=== PATIENT | female | born 1975 | race Caucasian/White ===

== ENCOUNTER 2022-07-28 12:43 | Outpatient (CLI) | payer OTHER, SELFPAY ==
--- NOTE | 2022-07-28 13:00 | CRLHL7_ITS ---
For Patients: As a result of the Century Cures Act, medical imaging exams and procedure reports are released immediately into your electronic medical record. You may view this report before your referring provider. If you have questions, please contact your health care provider. BILATERAL SCREENING MAMMOGRAM WITH COMPUTER-AIDED DETECTION TECHNIQUE: CC, MLO and Implant displaced views were obtained. These mammographic images have been obtained using full-field digital technique. These mammographic images were interpreted with the benefit of computer-aided detection. COMPARISON FILM: 07/15/21, 07/13/20, 07/01/19. FINDINGS: The breasts are extremely dense, which lowers the sensitivity of mammography IMPRESSION: There is no radiographic evidence for malignancy. ASSESSMENT: BI-RADS Category 2: Benign RECOMMENDATION: Routine screening mammogram in 1 year. A lay language report of this examination will be provided to the patient. Chapo Cerda M.D. Diagnostic Radiologist [email or web address] INDU/[email or web address] dillard/Dictated by: Chapo Cerda MD @ 08/02/2022 12:27:00 PM (Electronically Signed)
== END 2022-07-28 12:44 | disposition home or self-care (01) ==
LOC: MAMMO 12:43
PROVIDERS: PCP Family Medicine; Visit Provider Physician Assistant
DX: Z12.31 Encounter for screening mammogram for malignant neoplasm of breast (principal); R92.2 Inconclusive mammogram
CPT/HCPCS: 77067

== ENCOUNTER 2022-09-19 17:42 | Outpatient (CLI) | payer OTHER, SELFPAY | END 2022-09-19 17:43 | disposition home or self-care (01) | LOC: NFLDREF 17:43 | PROVIDERS: PCP Family Medicine; Visit Provider Physician Assistant | DX: Z01.419 Encounter for gynecological examination (general) (routine) without abnormal findings (principal); K59.00 Constipation, unspecified; R19.09 Other intra-abdominal and pelvic swelling, mass and lump | CPT/HCPCS: 84443 ==

== ENCOUNTER 2022-09-27 16:48 | Outpatient (CLI) | payer OTHER, SELFPAY ==
--- NOTE | 2022-09-27 17:00 | CRLHL7_ITS ---
For Patients: As a result of the Century Cures Act, medical imaging exams and procedure reports are released immediately into your electronic medical record. You may view this report before your referring provider. If you have questions, please contact your health care provider. INDICATION: 47 year-old female. Palpable right inguinal lumps. TECHNIQUE: Directed soft tissue ultrasound of the right inguinal region. Directed soft tissue ultrasound of the left inguinal region for comparison. FINDINGS: Multiple bilateral inguinal lymph nodes are identified. They maintain a normal reniform shape and an echogenic hilus. Within the right groin there are 4 lymph nodes visualized the largest measuring up to 1.6 cm, 2 measuring up to 1.4 cm and a additional lymph node measuring up to 1.5 cm. For comparison the left inguinal region is imaged and there is a 1.7 cm left inguinal lymph node as well as a 2nd 1.5 cm lymph node. Three additional lymph nodes are measured at less than 1 cm. IMPRESSION: Bilateral inguinal lymph nodes maintaining a normal reniform shape. No lymphadenopathy. Dictated by Jarett Barrios MD @ 09/27/2022 10:32:09 PM (Electronically Signed)
== END 2022-09-27 16:49 | disposition home or self-care (01) ==
LOC: US 16:48
PROVIDERS: PCP Family Medicine; Visit Provider Physician Assistant
DX: R19.09 Other intra-abdominal and pelvic swelling, mass and lump (principal)
CPT/HCPCS: 76882

== ENCOUNTER 2022-09-29 19:43 | Emergency (ER) | payer OTHER, SELFPAY ==
[2022-09-29 20:31] VITALS: BP 147/76; PULSE 67; RESP 18; TEMP 36.5; O2SAT 99
--- NOTE | 2022-09-29 20:39 | CRLHL7_ITS ---
For Patients: As a result of the Century Cures Act, medical imaging exams and procedure reports are released immediately into your electronic medical record. You may view this report before your referring provider. If you have questions, please contact your health care provider. INDICATION: Right flank pain TECHNIQUE: Axial images were obtained from the diaphragm to the pubic symphysis. Reformats were obtained in the coronal and sagittal plane. IV Contrast: None Oral Contrast: None COMPARISON: None. FINDINGS: Lower chest: No acute consolidation. Bilateral breast implants. Liver: Normal in contour with 4 millimeter cyst within the left lobe. Gallbladder and bile ducts: High density layering within the gallbladder, high-density sludge versus small stones. No pericholecystic inflammation. Spleen: Unremarkable. Normal in size without mass. Pancreas: Unremarkable. No mass or inflammation. Adrenal glands: Unremarkable. No nodules. Kidneys: Multiple phleboliths within the pelvis without definite ureteral stone or hydronephrosis. Vasculature: Unremarkable. GI tract: No dilated loops of large or small intestine. Pelvis: Anteverted uterus with intrauterine device. Likely right ovarian cyst measuring 1.5 centimeters. Bones: Unremarkable for age. IMPRESSION: 1. Multiple phleboliths within the pelvis without definite ureteral stone. No hydronephrosis. 2. High density within the gallbladder, high-density bile and/or multiple gallstones. No pericholecystic inflammation is present although if there is pain localized to the right upper quadrant, ultrasound would have improved characterization. 3. No dilated loops of large or small intestine. Please note that all CT scans at this facility use dose modulation, iterative reconstruction, and/or weight-based dosing when appropriate to reduce radiation dose to as low as reasonably achievable. Dictated by Steve Rock MD @ 09/29/2022 9:01:45 PM (Electronically Signed)
--- NOTE | 2022-09-29 20:40 | ED.GENADULT ---
HPI - General Adult General Chief complaint: Flank Pain Stated complaint: Possible kidney stones Time Seen by Provider: 09/29/22 20:29 History of Present Illness HPI narrative: This 47-year-old female comes in reporting right flank pain that began yesterday. She states that the pain comes and goes somewhat and sometimes there is associated nausea. When the pain is present she is maneuvering trying to get into a comfortable position. She does not have any personal or family history of kidney stones. She does not describe any hematuria but states that she is urinating a bit more frequently. Prior to this she was in good health. Related Data Home Medications Medication Instructions Recorded Confirmed levonorgestrel 21 mcg/24 hours (8 1 device intrauterine ONCE 03/15/22 09/29/22 yrs) 52 mg intrauterine device (Mirena) multivitamin (Multiple Vitamins 1 tab PO QDAY 03/15/22 09/29/22 tablet) calcium carbonate 500 mg calcium 500 mg PO QDAY 09/19/22 09/29/22 (1,250 mg) chewable tablet (Calcium 500) Previous Rx's Medication Instructions Recorded hydrocodone 5 mg-acetaminophen 325 1 tab PO Q4-6H PRN pain #20 tabs 09/29/22 mg tablet Allergies Allergy/AdvReac Type Severity Reaction Status Date / Time No Known Allergies Allergy Unknown Verified 09/29/22 20:33 Review of Systems Status of ROS: Reports: 10 or more systems reviewed and unremarkable except as noted in History and below Narrative: Constitutional: No fevers, no weight gain or loss. Eyes: No discharge. No vision changes. HENT: No congestion, no sore throat, no ear pain. Cardiovascular: No chest pain, no palpitations. Respiratory: No shortness of breath, no wheezes, no cough. Gastrointestinal: No vomiting, no diarrhea. Right flank pain that sometimes radiates into the abdomen. Genitourinary: No dysuria, no hematuria. Musculoskeletal: Normal range of motion. Skin: No rashes, no pruritis. Neurological: No dizziness, weakness, sensory change, speech change. Endo/Heme/Allergies: No bruising or bleeding. No polydipsia. Pysch: no suicidality, no anxiety, no insomnia. All other systems reviewed and are negative. [facility] Surgical History (Updated 09/22/22 @ 08:30 by Hermila Fitzloff, PA-C) History of bilateral breast implants History of spinal surgery Family History (Updated 09/18/22 @ 14:25 by Hermila De La O PA-C) Son Kidney disease Social History (Updated 09/22/22 @ 08:16 by Hermila De La O PA-C) Narrative: Exercises regularly- 4/week, farm chores , office work, 3 kids Social drinker- 5/week Tobacco abuse- infrequent, hx 15 years 1 pack/week. Currently using E cigarette congenitally. Smoking Status: Current some day smoker Little interest or pleasure in doing things: not at all Feeling down, depressed, or hopeless: not at all Exam Narrative: Exam Narrative: Constitutional: Well-developed, well-nourished, no acute distress. HEENT: Normocephalic, atraumatic. Neck: Normal range of motion. Nontender. Supple. Heart: Regular. No murmurs. Normal rate. Intact distal pulses. Lungs: Clear to auscultation. No chest discomfort. No wheezes, rhonchi, or rales. Abdomen: Normal bowel sounds. Nontender. No rebound tenderness. Pain is located in the right flank region. Genitalia: Deferred. Back: No midline tenderness. Normal range of motion. Extremities: Normal range of motion. No injury. Skin: Intact. No rash. Warm. No erythema or pallor. Neurologic: No altered sensation. No weakness. Alert and oriented. Psychiatric: No suicidality. No anxiety or depression. No insomnia. Nursing notes and vitals signs are reviewed. Const: Vital Signs, click to edit/add: Vital Signs - 24 hr 09/29/22 20:31 Temperature 97.7 F Pulse Rate [Right Pulse Oximeter] 67 Respiratory Rate 18 Blood Pressure [Ri ght Upper Arm] 147/76 H Pulse Oximetry 99 Oxygen Delivery Me thod Room Air Course Vital Signs Vital signs: Initial Vital Signs Temperature 97.7 F 09/29/22 20:31 Temperature Source Temporal Artery Scan 09/29/22 20:31 Pulse Rate 67 09/29/22 20:31 Respiratory Rate 18 09/29/22 20:31 Blood Pressure 147/76 H 09/29/22 20:31 Blood Pressure Mean 99 09/29/22 20:31 Blood Pressure Position Sitting 09/29/22 20:31 Pulse Oximetry 99 09/29/22 20:31 Oxygen Delivery Method 09/29/22 20:31 Vital Signs Temperature 97.7 F 09/29/22 20:31 Pulse Rate 67 09/29/22 20:31 Respiratory Rate 18 09/29/22 20:31 Blood Pressure 147/76 H 09/29/22 20:31 Pulse Oximetry 99 09/29/22 20:31 Oxygen Delivery Method 09/29/22 20:31 Temperature 97.7 F 09/29/22 20:31 Pulse Rate 67 09/29/22 20:31 Respiratory Rate 18 09/29/22 20:31 Blood Pressure 147/76 H 09/29/22 20:31 Pulse Oximetry 99 09/29/22 20:31 Oxygen Delivery Method 09/29/22 20:31 Medical Decision Making MDM Narrative Medical decision making narrative: This patient comes in reporting right flank pain that sometimes radiates into her right abdomen. She was suspicious of a kidney stone but did not have any prior history of this nor was she aware of any family history of kidney stone. She declined any treatment for pain or other symptoms currently. Urinalysis was acquired and shows no sign of hematuria or infection. CT imaging of the abdomen and pelvis without contrast shows multiple phleboliths but no sign of kidney stone. There is suspicion that her gallbladder has sludge are multiple stones present. I did use bedside ultrasound to attempt to visualize her gallbladder. A does appear that it is full of stones or sludge. The patient did eat prior to arrival here and states that her pain worsened soon after eating. I did order an ultrasound from the radiology department to further evaluate this. Lab results also or acquired to evaluate for obstruction or infection. Results for these tests are pending at the end of my shift and the overnight physician will look after results and proceed accordingly. Lab Data Labs: Lab Results 09/29/22 Range/Units 20:29 Urine Color Yellow (Yellow) Urine Appearance Clear (Clear) Urine pH 6.5 (5.0-8.5) Ur Specific [place] <= 1.005 (1.000-1.030) Urine Protein Negative (Negative) Urine Glucose (UA) Negative (Negative) Urine Ketones Negative (Negative) Urine Blood Negative (Negative) Urine Nitrite Negative (Negative) Urine Bilirubin Negative (Negative) Urine Urobilinogen 0.2 (0.2-1.0) Ur Leukocyte Esterase Negative (Negative) Imaging Data CT scan - abdomen: Radiologist's impression: 1. Multiple phleboliths within the pelvis without definite ureteral stone. No hydronephrosis. 2. High density within the gallbladder, high-density bile and/or multiple gallstones. No pericholecystic inflammation is present although if there is pain localized to the right upper quadrant, ultrasound would have improved characterization. 3. No dilated loops of large or small intestine. Discharge Plan Discharge Clinical Impression: Cholelithiasis Condition: Unchanged Prescriptions: New hydrocodone-acetaminophen 5-325 mg tablet 1 tab PO Q4-6H PRN (Reason: pain) Qty: 20 0RF No Action calcium carbonate [Calcium 500] 500 mg calcium (1,250 mg) tablet,chewable 500 mg PO QDAY multivitamin [Multiple Vitamins] Tablet 1 tab PO QDAY Mirena 20 mcg/24 hours (7 yrs) 52 mg intrauterine device 1 device intrauterine ONCE Rx Instructions: as a single dose Follow Up/Referrals: Gabbi Santiago MD [Primary Care Provider] -
[2022-09-29 20:42] LABS: Appearance Urine Clear (Clear); Bilirubin Urine Negative (Negative); Blood Urine Negative (Negative); Color Urine Yellow (Yellow); Glucose Urine Negative (Negative); Ketones Urine Negative (Negative); Leukocyte Esterase Urine Negative (Negative); Nitrite Urine Negative (Negative); Protein Urine Negative (Negative); Specific Gravity Urine <= 1.005 (1.000-1.030); Urobilinogen Urine 0.2 (0.2-1.0); pH Urine 6.5 (5.0-8.5)
--- NOTE | 2022-09-29 21:38 | CRLHL7_ITS ---
For Patients: As a result of the Century Cures Act, medical imaging exams and procedure reports are released immediately into your electronic medical record. You may view this report before your referring provider. If you have questions, please contact your health care provider. INDICATION: Abdominal pain right upper quadrant TECHNIQUE: Ultrasound abdomen limited. Sonographic images of the right upper quadrant were obtained using smith-scale and color Doppler images. COMPARISON: CT 09/29/2022 FINDINGS: Liver: There is a 7 mm simple cyst in the left lateral segment of liver. Gallbladder: Numerous layering echogenic foci are present within the contracted gallbladder which likely represent tiny gallstones. The gallbladder wall is normal in appearance. No pericholecystic fluid is present. Common bile duct: 4 mm. No intrahepatic biliary ductal dilatation seen. Pancreas: The visualized portions of the pancreatic head and body are normal in appearance. Right Kidney: 10.2 cm. No hydronephrosis or ureterectasis is seen. Vascular: The visualized abdominal aorta and IVC are unremarkable. The visualized portal vein is patent with normal anterograde flow. IMPRESSION: 1. Numerous layering echogenic foci are present within the contracted gallbladder which likely represent tiny gallstones. Dictated by Lucho Cleveland MD @ 09/29/2022 10:57:46 PM Dictated by: Lucho Cleveland MD @ 09/29/2022 22:57:49 (Electronically Signed)
[2022-09-29 22:02] LABS: Basophils Absolute Auto 0.05 K/uL (0.00-0.30); Basophils Percent Auto 0.7 % (0.0-3.0); Eosinophils Absolute Auto 0.18 K/uL (0.00-0.50); Eosinophils Percent Auto 2.6 % (0.0-7.0); Hematocrit 37.9 % (33.0-51.0); Hemoglobin* 12.6 gm/dL (12.0-16.0); Lymphocytes Absolute Auto 2.03 K/uL (0.90-2.90); Lymphocytes Percent Auto 29.3 % (20-44); Mean Corpuscular HGB Conc 33 gm/dL (32-36); Mean Corpuscular Hemoglobin 32 pg (26-34); Mean Corpuscular Volume 97 fL (80-100); Monocytes Percent Auto 9.4 % (0.0-11.0); Neutrophils Absolute Auto 4.02 K/uL (1.7-7.0); Platelet Count* 233 K/uL (140-440); RDW Coefficient of Variation % 12.1 % (11.5-15.5); Red Blood Count 3.91 m/uL (4.00-5.20); White Blood Count* 6.93 K/uL (4.50-11.00)
[2022-09-29 22:07] VITALS: BP 135/74; PULSE 67; RESP 18; TEMP 36.5; O2SAT 99
[2022-09-29 22:18] LABS: Chloride* 105 mmol/L (96-114)
[2022-09-29 22:19] LABS: Albumin* 4.2 g/dL (3.3-5.0); Potassium* 3.7 mmol/L (3.6-5.1); Sodium* 137 mmol/L (135-149)
[2022-09-29 22:22] LABS: Alanine Aminotransferase* 16 U/L (4-35); Alkaline Phosphatase* 40 U/L (40-150); Aspartate Amino Transferase* 20 U/L (12-35); Bilirubin Direct* 0.2 mg/dL (0.0-0.5); Bilirubin Total* 0.3 mg/dL (0.1-1.5); Blood Urea Nitrogen* 10 mg/dL (5-24); Calcium* 9.1 mg/dL (8.4-10.6); Carbon Dioxide* 30 mmol/L (20-32); Creatinine* 0.7 mg/dL (0.5-1.5); Est. Creatinine Clearance* 83.54; Estimated Glomerular Filt Rate 106 ml/min; Glucose* 90 mg/dL (60-115); Lipase* 79 U/L (23-300); Total Protein* 7.2 g/dL (6.0-8.3)
[2022-09-29 22:37] LABS: Slide Review Reflex No
[2022-09-29 23:33] VITALS: BP 135/74; PULSE 67; RESP 18; TEMP 36.5
[2022-09-29 23:35] VITALS: BP 128/74; PULSE 71; RESP 18; TEMP 36.5; O2SAT 99
== END 2022-09-29 23:34 | disposition home or self-care (01) ==
PROVIDERS: Emergency Provider Emergency Medicine Emergency Medical Services; PCP Family Medicine
DX: K80.20 Calculus of gallbladder without cholecystitis without obstruction (principal)
CPT/HCPCS: 36415; 74176; 76705; 80048; 80076; 81003; 83690; 85025; 99284; 99285

== ENCOUNTER 2022-10-10 08:51 | Day surgery (SDC) | payer OTHER, SELFPAY ==
[2022-10-10] VITALS (16 sets, daily range): BP systolic 118–137; BP diastolic 60–88; PULSE 42–65; RESP 12–26; TEMP 36.5–36.9; O2SAT 92–100; BMI 19.3
[2022-10-10 09:15] LABS: Ur HCG Qualitative* Negative (Negative)
[2022-10-10] MEDS: SODIUM CHLORIDE 0.9 % (FLUSH) 10 ML SYRINGE IVF (09:25)
[2022-10-10] MEDS: LACTATED RINGERS 1000 ML 1,000 ML 100 ML IV ×2 (09:26→12:25)
--- NOTE | 2022-10-10 09:39 | SUR.PREOP ---
Patient provided home covid negative results to RN.
[2022-10-10] MEDS: CEFAZOLIN 1 GM inj IVP (11:15)
--- NOTE | 2022-10-10 11:27 | W.ANESCHARGE ---
Anesthesia Charges Start Date/Time Anesthesia Start Date: 10/10/22 Anesthesia Start Time: 11:04 Stop Date/Time Anesthesia Stop Date: 10/10/22 Anesthesia Stop Time: 12:07
--- NOTE | 2022-10-10 11:47 | W.ANESCHARGE ---
Anesthesia Charges Start Date/Time Anesthesia Start Date: 10/10/22 Anesthesia Start Time: 11:04 Stop Date/Time Anesthesia Stop Date: 10/10/22 Anesthesia Stop Time: 12:07
[2022-10-10] MEDS: BUPIVACAINE 0.5% 30 ML 20 ML INJECTION (11:50)
--- NOTE | 2022-10-10 12:01 | PM.GSPRC ---
Operative Note Date of procedure: 10/10/22 Pre-op diagnosis: Biliary colic Post-op diagnosis: Same Type of Procedure: Laparoscopic cholecystectomy Indications: Patient is a 47-year-old female, who was seen in clinic for biliary colic. I had a detailed conversation with the patient regarding the diagnosis of biliary colic. We discussed the treatment options including observation with diet modification and laparoscopic cholecystectomy. We discussed the risks of surgery (including but not limited to) the risks of bleeding, infection, injury to other structures in the abdomen including bile duct injury, bile leak and conversion to an open operation. We discussed the possibility that the patient's pain not improve with surgery. We discussed the possibility of permanent post-operative diarrhea that may require medical management. Additionally, the conceivably of complications requiring additional surgery or further hospitalization were also discussed including the risks of WA, respiratory failure, stroke and blood clots. The patient voiced an understanding of our conversation, had the opportunity to ask questions, agreed to accept the risks of surgery and asked that we proceed with surgery. Procedure Description: After discussing the risks and benefits of the procedure, the patient signed informed consent.? The operative site was marked and the patient was brought to the operating room and placed on the operating table in supine position.? Care was taken to pad the patient's pressure points.?? The patient was then intubated by anesthesia.?? The operative site was then prepped and draped in the usual sterile fashion.? A time-out was then performed. Entrance to the abdomen was gained via a 5 mm Visiport in the left upper quadrant. The abdomen was insufflated and briefly surveyed for signs of injury. There was none. 11 mm umbilical port was placed as well as 2 working ports along the right costal margin. Patient was then placed in reverse Trendelenburg position with the right side up. The gallbladder fundus was grasped and retracted cephalad. The infundibulum was grasped. A combination of hook cautery and blunt dissection was used to carefully dissect out the cystic duct and artery until they could clearly be seen entering the gallbladder without any intervening structures. The gallbladder was dissected off the cystic plate to achieve the critical view. Once this was achieved the cystic duct and artery were each clipped with 2 clips proximally and 1 clip distally and transected with the scissors. The gallbladder was then taken off of the liver bed. And removed from the abdomen using an Endo-Catch bag. The gallbladder bed was surveyed for hemostasis. The umbilical port fascia was closed with 0 Vicryl. All other ports were removed under direct visualization. The skin was closed with absorbable subcuticular suture. Instrument sponge and needle counts were correct at the end of the case. The patient was then woken and transferred to the PACU in stable condition. ? Findings: Cholelithiasis Anesthesia: GETA Surgeon: Rebecca Painter MD Estimated blood loss (mL): 5 Specimen: Gallbladder Condition: stable Disposition: same day
[2022-10-10] MEDS: fentaNYL 100 MCG/2 ML inj 50 MCG IVP (12:49)
[2022-10-10] MEDS: KETOROLAC 15 MG/ML inj IVP (12:54)
[2022-10-10] MEDS: OXYCODONE 5 MG TABLET PO (13:15)
== END 2022-10-10 14:18 | disposition home or self-care (01) ==
PROVIDERS: PCP Family Medicine; Visit Provider Surgery
PROC: 0FT44ZZ Resection of Gallbladder, Percutaneous Endoscopic Approach (ICD-10-PCS; CPT 47562; principal; 2022-10-10 10:15)
DX: K80.10 Calculus of gallbladder with chronic cholecystitis without obstruction (principal)
CPT/HCPCS: 47562; 00790; 81025; 88304; A9270; J0690; J1100; J1885; J2250; J2405; J2704; J3010; J3490; J7120

== ENCOUNTER 2023-08-03 14:35 | Outpatient (CLI) | payer OTHER, SELFPAY ==
--- NOTE | 2023-08-03 14:40 | CRLHL7_ITS ---
For Patients: As a result of the Century Cures Act, medical imaging exams and procedure reports are released immediately into your electronic medical record. You may view this report before your referring provider. If you have questions, please contact your health care provider. BILATERAL SCREENING MAMMOGRAM WITH COMPUTER-AIDED DETECTION TECHNIQUE: CC, MLO and Implant displaced views were obtained. These mammographic images have been obtained using full-field digital technique. These mammographic images were interpreted with the benefit of computer-aided detection. COMPARISON FILM: 03/13/17, 11/02/15. FINDINGS: The breasts are extremely dense, which lowers the sensitivity of mammography IMPRESSION: There is no radiographic evidence for malignancy. ASSESSMENT: BI-RADS Category 2: Benign RECOMMENDATION: Routine screening mammogram in 1 year. A lay language report of this examination will be provided to the patient. Jarett Barrios M.D. Diagnostic/Nuclear Medicine Radiologist [email or web address] BETHANY/Dictated by: Jarett Barrios MD @ 08/07/2023 8:27:00 AM (Electronically Signed)
== END 2023-08-03 14:36 | disposition home or self-care (01) ==
LOC: MAMMO 14:36
PROVIDERS: PCP Family Medicine; Visit Provider Family Medicine
DX: Z12.31 Encounter for screening mammogram for malignant neoplasm of breast (principal); R92.2 Inconclusive mammogram
CPT/HCPCS: 77063; 77067

== ENCOUNTER 2023-10-26 07:42 | Outpatient (CLI) | payer OTHER, SELFPAY ==
--- NOTE | 2023-10-26 09:04 | W.ANESCHARGE ---
Anesthesia Charges Start Date/Time Anesthesia Start Date: 10/26/23 Anesthesia Start Time: 08:22 Stop Date/Time Anesthesia Stop Date: 10/26/23 Anesthesia Stop Time: 08:48
--- OUTSIDE RECORDS SUMMARY | 2023-11-02 11:59 | XMS_ITS | Clinical Summary ---
Author Name Unknown Organization [facility] Address [place], [place] [address] Care Team Providers Care Supervisor [employer] Name Role Phone Unknown, Doctor Primary Care Provider Unavailabl e Allergies No known active allergies Medications Medication Sig Dispensed Refills Start Date End Date Status VITAMIN E 1,000 UNIT CAP take 2 pill a day 0 10/20/2008 Active benzonatate (TESSALON) 100 mg capsuleIndications:V iral URI with cough Take 1 capsule by mouth 3 times daily if needed for Cough. 21 capsule 11/02/2017 Active Immunizations Name Administration Dates Next Due AMB Influenza, IIV3 (Age >=3 years)(Flu Clinic Only) 06/17/2008 Influenza, IIV3 (Age >=3 years) 06/17/2008,06/29,09/12/2006 Influenza, IIV4 09/10/2017 Td (Age >=7 Years) 04/23/1986 Tdap 10/20/2015 Social History Tobacco Use Types Packs/Day Years Used Date Smoking Tobacco: Never Smokeless Tobacco: Never Tobacco Cessation:Counseling Given: Yes Alcohol Use Standard Drinks/Week Comments Not Asked 0 (1 standard drink = 0.6 oz pur e alcohol) PHQ-2 Answer Date Recorded PHQ-2 Score 0 09/29/2018 Sex and Gender Information Value Date Recorded Sex Assigned at Not on file Gender Identity Not on file Sexual Orientation Not on file Obstetrics History Last Filed Vital Signs Vital Sign Reading Time Taken Comments Blood Pressure 130/64 11/02/2017 8:06 AM CDT Pulse 64 11/02/2017 8:06 AM CDT Temperature 37 ??C (98.6 ??F) 11/02/2017 8:06 AM CDT Respiratory Rate - - Oxygen Saturation 100% 11/02/2017 8:06 AM CDT Inhaled Oxygen Concentration - - Weight 54 kg (119 lb) 11/02/2017 8:06 AM CDT Height 166 cm (5' 5.35) 11/02/2017 8:06 AM CDT Body Mass Index 19.59 11/02/2017 8:06 AM CDT Plan of Treatment Health Maintenance Due Date Last Done Comments HIV for age 15-65 1988 Hepatitis C screening for age 18-79 1991 Colonoscopy through age 75 2018 Lipids for age 45-75 2018 Mammogram for age 45-75 2018 BMI (ht and wt on same day) for age 18+ 11/02/2018 11/02/2017 Depression screening for age 12+ 11/02/2018 11/02/2017 COVID-19 vaccine series (2022- season) 2023 Zoster (shingles) series for age 50+ (1 of 2) 2023 Pap test for age 21-65 01/14/2024 , 01/13/2021, 10/20/2015, Additional history exists Influenza for age 50-64 03/30/2024 09/10/19 18, 06/17/2008, 06/17/2008, Additional history exists Tetanus booster 10/19/2025 10/20/2015, 04/23/1986 Tdap Completed 10/20/2015 Pneumococcal series for age 6-64 Aged Out No longer eligible based on patient's age to complete this topic Procedures Procedure Name Priority Date/Time Associated Diagnosis Comments MOLD FILLER THIN PREP PAP SCREEN IMAGED Routine 01/13/2021 12:00 PM CDT from Last 3 Months or Most Recently Relevant to Health Maintenance Results * MOLD FILLER THIN PREP PAP SCREEN IMAGED (01/13/2021 12:00 PM CDT) Case Report Gynecologic Cytology Report ? Case: [id number] ? Authorizing Provider: ??Fitzloff, Hermila L, PA-C ?Collected: ? 01/13/2021 1200 ? Ordering Location: ? [facility] ?Received: ?01/17/2021 0934 ? First Screen: ?Marlene Castro ? Specimen: ?MOLD FILLER ThinPrep Vial Screening, Cervical/Vaginal ? 01/26/2021 1:41 PM CDT [facility] INTERPRETATION/ RESULT NEGATIVE FOR INTRAEPITHELIAL LESION OR MALIGNANCY (NIL) (none) 01/26/2021 1:41 PM CDT [facility] NISM(S) Shift in santa suggestive of bacterial vaginosis 01/26/2021 1:41 PM CDT [facility] SPECIMEN ADEQUACY Satisfactory for evaluation Endocervical component present 01/26/2021 1:41 PM CDT [facility] HPV REQUEST HPV and PAP 01/26/2021 1:41 PM CDT [facility] Date of LMP 01/03/2021 01/26/2021 1:41 PM CDT [facility] Additional Information 01/26/2021 1:41 PM T [facility] Comment: Interpreted at [facility] - [address], [place] [address] Automated Review Successful 01/26/2021 1:41 PM CDT [facility] [employer] [facility] Comment:Specimen processed s uccessfully by automated mrp controller device, [employer] MedicalPrep Imaging System, [employer] ANCILLARY TESTING MOLD FILLER HPV Ordered, Please see separate report 01/26/2021 1:41 PM CDT [facility] Note The pap test is a screening technique, not a diagnostic procedure. It is used primarily to screen for squamous cancers and precursor lesions. Published studies have shown that it is subject to both false negative and false positive results. The pap test should not be used as the sole means to diagnose or exclude pre-malignant and malignant lesions. 01/26/2021 1:41 PM CDT [facility] [employer] [facility] Other (Cervical/Vagina l) 01/13/2021 12:00 PM CDT 01/17/2021 9:34 AM CDT October [facility] PATHOLOGY/CYTOLOGY [facility] [address] [place] [address], [place] from Last 3 Months or Most Recently Relevant to Health Maintenance Care Teams Supervisor [employer] Relationship Specialty Start Date End Date Unknown, Doctor . PCP - General 09/12/06
== END 2023-10-26 07:43 | disposition home or self-care (01) ==
LOC: OP CLINIC 07:42
PROVIDERS: PCP Family Medicine; Visit Provider Internal Medicine
DX: Z12.11 Encounter for screening for malignant neoplasm of colon (principal); K64.8 Other hemorrhoids
CPT/HCPCS: 00812; 45378; J2704

== ENCOUNTER 2024-08-05 16:35 | Outpatient (CLI) | payer BC, SELFPAY | END 2024-08-05 16:36 | disposition home or self-care (01) | LOC: NFLDREF 08-06 01:53 | PROVIDERS: PCP Family Medicine; Referring Provider Family Medicine; Visit Provider Internal Medicine | DX: M54.9 Dorsalgia, unspecified (principal); R82.90 Unspecified abnormal findings in urine | CPT/HCPCS: 87086 ==

== ENCOUNTER 2024-08-08 15:29 | Outpatient (CLI) | payer BC, SELFPAY ==
--- NOTE | 2024-08-08 16:00 | CRLHL7_ITS ---
For Patients: As a result of the Century Cures Act, medical imaging exams and procedure reports are released immediately into your electronic medical record. You may view this report before your referring provider. If you have questions, please contact your health care provider. INDICATION: Flank pain. Hematuria. TECHNIQUE: Noncontrast CT images of the abdomen and pelvis. COMPARISON: CT abdomen pelvis 09/29/2022. FINDINGS: No concerning opacities in the visualized lungs. No pleural effusion. Heart size is normal. Incompletely visualized bilateral breast implants. The liver, spleen, and pancreas are unremarkable. Cholecystectomy. The adrenal glands are unremarkable. The kidneys are unremarkable. No radiopaque renal, ureteral, or bladder calculi. The stomach is underdistended. No abnormally dilated loops of bowel. Appendix is unremarkable. No free fluid or free air. No pathologically enlarged lymph nodes. The abdominal aorta is normal in caliber. The urinary bladder is mildly distended. Uterus is anteverted. Intrauterine device is present. No aggressive osseous lesions. IMPRESSION: 1. No acute abnormality in the abdomen or pelvis. 2. No radiopaque renal, ureteral, or bladder calculi. Please note that all CT scans at this facility use dose modulation, iterative reconstruction, and/or weight-based dosing when appropriate to reduce radiation dose to as low as reasonably achievable. Dictated by Saeed Herrera MD @ 08/10/2024 1:40:14 PM (Electronically Signed)
== END 2024-08-08 15:30 | disposition home or self-care (01) ==
LOC: CT 15:30
PROVIDERS: PCP Family Medicine; Visit Provider Internal Medicine
DX: R10.9 Unspecified abdominal pain (principal); M54.9 Dorsalgia, unspecified; R31.9 Hematuria, unspecified
CPT/HCPCS: 74176

== ENCOUNTER 2024-08-12 16:30 | Outpatient (CLI) | payer BC, SELFPAY | END 2024-08-12 16:31 | disposition home or self-care (01) | LOC: NFLDREF 08-18 04:04 | PROVIDERS: PCP Family Medicine; Referring Provider Family Medicine; Visit Provider Internal Medicine | DX: M54.9 Dorsalgia, unspecified (principal); R82.90 Unspecified abnormal findings in urine | CPT/HCPCS: 87086 ==

== ENCOUNTER 2024-08-19 15:35 | Outpatient (CLI) | payer BC, SELFPAY ==
--- NOTE | 2024-08-19 15:40 | CRLHL7_ITS ---
For Patients: As a result of the Cures Act, medical imaging exams and procedure reports are released immediately into your electronic medical record. You may view this report before your referring provider. If you have questions, please contact your health care provider. BILATERAL SCREENING MAMMOGRAM WITH COMPUTER-AIDED DETECTION AND TOMOSYNTHESIS TECHNIQUE: CC, MLO and Implant displaced views were obtained. These mammographic images have been obtained using full-field digital technique. These mammographic images were interpreted with the benefit of computer-aided detection. Breast Tomosynthesis was used in this interpretation. COMPARISON FILM: 08/03/23, 07/28/22, 07/15/21. FINDINGS: The breasts are extremely dense, which lowers the sensitivity of mammography. IMPRESSION: There is no radiographic evidence for malignancy. ASSESSMENT: BI-RADS Category 2: Benign RECOMMENDATION: Routine screening mammogram in 1 year. A lay language report of this examination will be provided to the patient. Jarett Barrios M.D. Diagnostic/Nuclear Medicine Radiologist [email or web address] [place]/Dictated by: Jarett Barrios MD @ 08/21/2024 10:16:00 AM (Electronically Signed)
== END 2024-08-19 15:36 | disposition home or self-care (01) ==
LOC: MAMMO 15:35
PROVIDERS: PCP Family Medicine; Visit Provider Physician Assistant
DX: Z12.31 Encounter for screening mammogram for malignant neoplasm of breast (principal); R92.343 Mammographic extreme density, bilateral breasts
CPT/HCPCS: 77063; 77067

== ENCOUNTER 2025-01-12 16:45 | Outpatient (RCR) | payer BC, SELFPAY | END 2025-03-31 09:04 | disposition home or self-care (01) | PROVIDERS: PCP Family Medicine; Visit Provider Physician Assistant | DX: M25.511 Pain in right shoulder (principal); Z51.89 Encounter for other specified aftercare | CPT/HCPCS: 97110; 97140; 97161 ==